=== PATIENT | female | born 1930 | race Caucasian/White ===

== ENCOUNTER 2016-07-30 16:37 | Observation (INO) | payer MEDICARE, OTHER ==
[2016-07-30] MEDS ORDERED: Ondansetron 4 MG Tab.DIS PO PRN (17:24)
[2016-07-30] MEDS ORDERED: Sodium Chloride 0.9% 5 ML Syringe FLUSH PRN (17:24)
[2016-07-30] MEDS: Acetaminophen 650 MG Tab.ER PO SCH (18:03)
[2016-07-30] MEDS: Lidocaine 5% 700 MG Patch TOP SCH (18:03)
[2016-07-30] MEDS ORDERED: Polyethylene Glycol 3350 Powder 17 GM Packet PO PRN (19:33)
[2016-07-30] MEDS ORDERED: Ketorolac 30 MG/ML SDV IVPUSH ONE (19:35)
[2016-07-30] MEDS ORDERED: Gabapentin 300 MG Cap PO SCH (21:00)
[2016-07-30] MEDS ORDERED: Fenofibrate 160 MG Tab PO SCH (21:00)
[2016-07-30] MEDS ORDERED: rOPINIRole 0.25 MG Tab PO SCH (21:00)
[2016-07-30] MEDS: Carboxymethylcellulose Sodium 0.5% Ophth Soln 15 ML Bottle EYEBOTH SCH (21:45)
[2016-07-30] MEDS ORDERED: Ketorolac 30 MG/ML SDV ONE (23:24)
[2016-07-31] MEDS: Acetaminophen 650 MG Tab.ER PO SCH ×4 (05:14→22:07)
[2016-07-31] MEDS ORDERED: Omeprazole 20 MG Cap.CR PO SCH (07:00)
[2016-07-31] MEDS ORDERED: Levothyroxine 25 MCG Tab PO SCH (07:00)
[2016-07-31] MEDS ORDERED: Levothyroxine 100 MCG Tab PO SCH (07:00)
[2016-07-31] MEDS ORDERED: Potassium Chloride 10 MEQ Tab.ER PO SCH (08:00)
[2016-07-31] MEDS ORDERED: Escitalopram 10 MG Tab PO SCH (09:00)
[2016-07-31] MEDS ORDERED: Isosorbide Mononitrate 30 MG Tab.ER PO SCH (09:00)
[2016-07-31] MEDS ORDERED: Gabapentin 300 MG Cap PO SCH ×2 (09:00→21:00)
[2016-07-31] MEDS ORDERED: Furosemide 20 MG Tab PO SCH (09:00)
[2016-07-31] MEDS: Gabapentin 300 MG Cap PO SCH ×2 (10:02→13:49)
[2016-07-31] MEDS: POTASSIUM CL 10 MEQ PO SCH (10:03)
[2016-07-31] MEDS: Escitalopram 10 MG Tab PO SCH (10:04)
[2016-07-31] MEDS: Furosemide 20 MG Tab PO SCH (10:06)
[2016-07-31] MEDS: Carboxymethylcellulose Sodium 0.5% Ophth Soln 15 ML Bottle EYEBOTH SCH ×3 (10:06→20:12)
[2016-07-31] MEDS: Isosorbide Mononitrate 30 MG Tab.ER PO SCH (10:07)
--- NOTE | 2016-07-31 11:46 | PN ---
07/31/2016 PATIENT NAME: KENNEDY MARTINS CHIEF COMPLAINT: She still has ongoing back pain, however, about 50% improved. HISTORY: This 86-year-old obese female, who saw myself at the [facility] yesterday, she was accompanied by her daughter complaining of ongoing quite severe back pain. She stated that it has been getting worse over the past few days. Her back pain was causing her so much pain that it was difficult in getting out of bed, and out of her chair. She was able to walk into the clinic yesterday, by the use of a walker, however, this was quite severe for, her main problem is getting from a sitting position to a standing position, or from a lying to a sitting or standing position. She was seen in the clinic a few days prior due to her shoulder pain. She did receive epidural steroid injection in her shoulder. She was also seen for her back pain mainly due to her osteoarthritis affecting the low back. She was scheduled at that time for physical therapy for some deep heat and ultrasound treatment of her back, however, there was a back log about the patient's in PT, so she could not get in right away. She has a longstanding history of chronic back pain with discogenic degenerative disk disease. She had received epidural steroid injection in her back by Dr. Banks in [place], [place], he is an orthopedic surgeon, but that was many years ago. The patient does have a few steps to get into her house, however, no steps while she is in the house. She stated yesterday that she has a hard time doing dishes, it was very painful for her by standing at the sink, she has to hold onto her counters in order to help support her. She has a very difficult time doing laundry and she had a very difficult time managing her basic ADLs at home. The family did modify her house to the point where she did not have to bend or lift so much, so, she was admitted basically for intractable back pain and for CT scan. DIAGNOSTICS: CT of the thoracic spine yesterday, shows mild compression fractures of T2, T6, and T11, questionable of uncertain age. There were no gross evidence of disk herniation or significant central stenosis. She did have a small pericardial effusion that was noted incidentally. Also, showed multilevel degenerative changes with significant bilateral foraminal stenosis at L5-S1. She is not a candidate for MRI due to pacemaker placement. REVIEW OF SYSTEMS: NEUROLOGICAL: Denies any radiation down the back of her legs, however, she does have radiculopathy down to her anterior thighs that extend past her knees. Her knees have not given out. GASTROINTESTINAL: She denies any bladder or bowel dysfunction. Denies saddle anesthesia. PHYSICAL EXAMINATION: VITAL SIGNS: Temperature 97, blood pressure 124/62, respiratory rate 20, and O2 sats 95% on room air. GENERAL: The patient is alert and oriented. LUNGS: Clear to auscultation. CARDIOVASCULAR: Regular rate and rhythm with approximately 1/2/6 of cardiac murmur, systolic. ABDOMEN: The patient is quite morbid. Bowel tones are normal. EXTREMITIES: She has negative dorsiflexion weakness. She has some mild radiculopathy symptoms radiating down to the anterior thighs, radiation does not extend past her knees . Normal patellar reflex. BACK: She has some paraspinal tenderness, mainly midline, axial, lower lumbar area. LABORATORY DATA: [facility], ESR and CBC were normal. Labs today dated 07/30/2016, sodium and potassium were normal. BUN 29, creatinine 0.92, and calcium 9.1. IMPRESSION/PLAN: 1. Multilevel degenerative changes with significant bilateral foraminal stenosis at L5-S1. The patient is schedule for an epidural steroid injection at the [facility] later in July. We will continue with Lidoderm patch. She received a dose of Toradol last night. Schedule Tylenol. She is on fentanyl patch 25 mcg prior to admission. 2. Pain management contract agreement with [facility]. 3. Essential hypertension. This is stable. 4. Coronary artery disease with [place] artery of menominee heart with stable angina. She is on Imdur. 5. Sick sinus syndrome. She does have a pacemaker prohibiting MRI. 6. Chronic combined systolic and diastolic heart failure. 7. Morbid obesity. She is on 1600 kilocalorie diet, this has been reduced, this is definitely contributing to her acute on chronic pain. 8. Vitamin B12 deficiency. 9. Depressive disorder. This seems to be well controlled on citalopram. 10.Idiopathic sleep-related nonobstructive hypoventilation, she is on a CPAP, she had brought this in. 11.Restless legs syndrome. 12.Chronic kidney disease history. Her GFR is good at 58. Creatinine clearance is around 30, stage III. 13.Primary osteoarthritis involving multiple joints. OVERALL PLAN: The patient is scheduled for an epidural steroid injection. She is in observation status. We will continue monitoring her today for her pain control. We will see how she does with this today with Lidoderm patch, Toradol, and schedule Tylenol. Most likely, she will be discharged tomorrow and hopefully, we can her keep her level of function adequate until her epidural steroid injection. She does have a physical therapy consultation placed at [facility]. /[id number]/MODL
[2016-07-31] MEDS: Lidocaine 5% 700 MG Patch TOP SCH (18:00)
[2016-07-31] MEDS ORDERED: Fenofibrate 160 MG Tab PO SCH (21:00)
[2016-07-31] MEDS ORDERED: rOPINIRole 0.25 MG Tab PO SCH (21:00)
[2016-08-01] MEDS: Acetaminophen 650 MG Tab.ER PO SCH ×2 (06:27→13:23)
[2016-08-01] MEDS ORDERED: Omeprazole 20 MG Cap.CR PO SCH (07:00)
[2016-08-01] MEDS: Carboxymethylcellulose Sodium 0.5% Ophth Soln 15 ML Bottle EYEBOTH SCH ×2 (08:29→13:25)
[2016-08-01] MEDS: POTASSIUM CL 10 MEQ PO SCH (08:30)
[2016-08-01] MEDS: Escitalopram 10 MG Tab PO SCH (08:31)
[2016-08-01] MEDS: Isosorbide Mononitrate 30 MG Tab.ER PO SCH (08:31)
[2016-08-01] MEDS: Furosemide 20 MG Tab PO SCH (08:31)
[2016-08-01] MEDS: Gabapentin 300 MG Cap PO SCH ×2 (08:31→13:26)
[2016-08-01] MEDS ORDERED: Ketorolac 30 MG/ML SDV IVPUSH ONE (12:58)
--- NOTE | 2016-08-01 13:19 | DISCH ---
FINAL DIAGNOSES: Multilevel degenerative disk disease, L5-S1; essential hypertension, which is stable; coronary artery disease with [place] artery, stable, she is on Imdur; sick sinus syndrome, on pacemaker prohibiting MRI; chronic combined diastolic and systolic heart failure; morbid obesity, placed on 1600 kilocalorie diet; vitamin B12 deficiency; depressive disorder, seems well controlled on citalopram; idiopathic sleep-related nonobstructive hypoventilation, she is on home CPAP; restless legs syndrome; chronic kidney disease, GFR around 58, creatinine clearance around 30, this is stage 3; primary osteoarthritis involving multiple joints. Compression fractures of T2, T6 and T11 with questionable certain age, however with no evidence of disk herniation and no significant central stenosis. HISTORY: This 86-year-old, obese female whom I saw myself at the [facility] and admitted her into observation due to intractable back pain. She was brought in by her daughter. Quite severe back pain. It tends to be gotten worse over the past few days prior to her coming in causing her so much pain that it was difficult getting out of bed, performing her basic ADLs. She was recently increased on her fentanyl patch from 12 mcg to 25 mcg. This was done approximately three weeks ago. However, she stated it has not improved. She did receive an epidural steroid injection in her shoulder just recently. She had also been seen for her back pain. Many years ago, was given the epidural steroid injection by Dr. Banks in [facility]. This is per patient report. We did perform a CT of her thoracic spine, which showed mild compression fractures T2, T6, and T11. HOSPITAL COURSE: The patient's hospital course went well. She improved much regarding her pain control. We gave her a very limited doses of Toradol, probably two doses since admission. She was continued on the fentanyl patch. I did place her on Tylenol Arthritis scheduled with a Lidoderm patch. She states her pain is much improved. She will receive an epidural steroid injection at the [facility]. Her vital signs remained stable. She never had any side effects or allergic reactions to any medications or treatments. I did place her on a 1600 kilocalorie diet per day for weight loss. She became afebrile. Her vital signs were stable. LABORATORY DATA: Sodium 141, potassium 4.1, BUN 29, creatinine 0.98, estimated GFR around 58, calcium 9.1. There was no microbiology report. MEDICATION CHANGES AND/OR DELETIONS: Diclofenac sodium 75 mg p.o. b.i.d. #60 given (newly added), Tylenol Arthritis 650 mg p.o. q.8 hours scheduled (newly added). The patient can continue on all her home medications including a fentanyl patch. DISPOSITION: The patient was discharged from observation. She will go back home. She has good family support. We assessed her with Leasing Director. It appears she has regained her full ability to perform her ADLs. She will receive an epidural steroid injection shot at the [facility] outpatient [facility] by Dr. Lisandro Garcia. This appointment will be made for her. She is to continue with her medications. MEDICAL DECISION MAKIN minutes were spent on discharge planning and process. /[id number]/MODL
[2016-08-01 14:26] VITALS: BP 125/55
[2016-08-02] MEDS ORDERED: fentaNYL 25 MCG/HR Transdermal Patch TRDERM SCH (09:00)
[2016-08-02] MEDS ORDERED: fentaNYL 12 MCG/HR Transdermal Patch TRDERM SCH (09:00)
== END 2016-08-01 14:07 | disposition home or self-care (01) ==
LOC: KA.MS 16:42
PROVIDERS: ADMIT Nurse Practitioner Family; ATTEND Nurse Practitioner Family
DX: M51.37 Other intervertebral disc degeneration, lumbosacral region (principal); I25.10 Atherosclerotic heart disease of native coronary artery without angina pectoris; I10 Essential (primary) hypertension; E66.01 Morbid (severe) obesity due to excess calories; I13.0 Hypertensive heart and chronic kidney disease with heart failure and stage 1 through stage 4 chronic kidney disease, or unspecified chronic kidney disease; N18.3 Chronic kidney disease, stage 3 (moderate); I50.42 Chronic combined systolic (congestive) and diastolic (congestive) heart failure; Z95.0 Presence of cardiac pacemaker; Z79.899 Other long term (current) drug therapy; Z88.8 Allergy status to other drugs, medicaments and biological substances; E03.9 Hypothyroidism, unspecified; E78.2 Mixed hyperlipidemia; E53.8 Deficiency of other specified B group vitamins; Z90.49 Acquired absence of other specified parts of digestive tract; Z96.653 Presence of artificial knee joint, bilateral
CPT/HCPCS: 36415; 72128; 72131; 80048; 96374; 96376; 97162-GP; A9270-GY; G0378; G0379; J1885

== ENCOUNTER 2017-05-06 14:54 | Observation (INO) | payer MEDICARE, OTHER ==
--- NOTE | 2017-05-06 15:39 | EDM.PDOC ---
ED HPI GENERAL MEDICAL PROBLEM - General Chief Complaint: Respiratory Problem Stated Complaint: SHORT OF BREATH Time Seen by Provider: 05/06/17 15:20 Source of Information: Reports: Patient History Limitations: Reports: No Limitations - History of Present Illness INITIAL COMMENTS - FREE TEXT/NARRATIVE: Patient is an 87-year-old female who presents emergency department this afternoon with a complaint of shortness of breath. Patient states this has progressively gotten worse since her release from the hospital on May 02. Patient underwent percutaneous aortic valve replacement in [place], [place] on May 01. Procedure and hospital stay were said to be uneventful. Patient denies chest pain, headache, dizziness, vision changes, nausea, vomiting , diarrhea, or fever. Onset: Gradual Duration: Day(s): Location: Reports: Chest Severity: Mild Improves with: Reports: None Worsens with: Reports: Breathing Context: Reports: Activity Associated Symptoms: Reports: Shortness of Breath. Denies: Chest Pain, Cough, Fever/Chills, Headaches, Nausea/Vomiting, Syncope Middle Abdominal Pain Score (Numeric/FACES): 3 - Related Data Allergies Allergy/AdvReac Type Severity Reaction Status Date / Time baclofen Allergy Confusion Verified 05/06/17 15:46 hydrocodone Allergy Hives Verified 05/06/17 15:46 polymyxin B [From Polytrim] Allergy Itching Verified 05/06/17 15:46 tramadol Allergy Hives Verified 05/06/17 15:46 trimethoprim [From Polytrim] Allergy Itching Verified 05/06/17 15:46 Home Meds: Home Meds Aspirin [Halfprin] 81 mg PO BEDTIME 05/13/16 [History] Cyanocobalamin (Vitamin B-12) [Cyanocobalamin Injection] 1,000 mcg IM ASDIRECTED 05/13/16 [History] Escitalopram [Lexapro] 15 mg PO DAILY 05/13/16 [History] Fenofibrate [Lofibra] 160 mg PO BEDTIME 05/13/16 [History] Gabapentin [Neurontin] 300 mg PO 0900,1400 05/13/16 [History] Isosorbide Mononitrate [Isosorbide Mononitrate ER] 45 mg PO DAILY 05/13/16 [ History] Levothyroxine 125 mcg PO ACBREAKFAST 05/13/16 [History] Magnesium Oxide [Magnesium] 500 mg PO DAILY 05/13/16 [History] Multivitamin [Multivitamins] 1 each PO DAILY 05/13/16 [History] Nitroglycerin [IJP: Nitroglycerin] 0.4 mg SL ASDIRECTED PRN 05/13/16 [History] Omeprazole 20 mg PO ACBREAKFAST 05/13/16 [History] Potassium Chloride [Klor-Con 10] 20 meq PO WITHBREAKFAST 05/13/16 [History] Propylene Glycol/Peg 400 [Systane 0.3-0.4% Eye Drops] 1 drop EYEBOTH TID [History] Simvastatin 10 mg PO BEDTIME 05/13/16 [History] Trola/Keto/Menth 1 applic TOP TID PRN 05/13/16 [History] Vitamin E Acid Succinate [Vitamin E] 100 unit PO DAILY 05/13/16 [History] Xx Calcium Lactate 325mg 3 tab PO BIDMEALS 05/13/16 [History] rOPINIRole HCl [Ropinirole HCl] 0.25 mg PO BEDTIME 05/13/16 [History] Ascorbic Acid [Vitamin C] 1 tab PO DAILY 07/30/16 [History] Polyethylene Glycol 3350 [MiraLAX] 17 gm PO DAILY PRN 07/30/16 [History] Furosemide 20 mg PO DAILY 07/31/16 [History] Gabapentin [Neurontin] 300 mg PO BEDTIME 07/31/16 [History] Gluc 2KCl/Chondr/Amanda Hy/Hy Ac [Glucosamine & Chondroitin Cap] 1 cap PO DAILY@ 1400 07/31/16 [History] Gluc 2KCl/Chondr/Amanda Hy/Hy Ac [Glucosamine & Chondroitin Cap] 2 cap PO BEDTIME 07/31/16 [History] Acetaminophen [Tylenol Arthritis Pain] 650 mg PO 0600,1400,2200 #90 tab.er 08/01 [Rx] Diclofenac Sodium [IMW: Diclofenac Sodium] 75 mg PO .TWICE DAILY W MEALS #60 tab.ec 08/01/16 [Rx] fentaNYL [Duragesic] 25 mcg TRDERM Q72H 08/01/16 [History] Past Medical History HEENT History: Reports: Cataract, Impaired Vision Cardiovascular History: Reports: CAD, Hypertension, Pacemaker Gastrointestinal History: Reports: GERD Genitourinary History: Reports: Urinary Incontinence COMMUNITY NURSE History: Reports: Other (See Below) Other OB/BYN History: miscarriages x2 Musculoskeletal History: Reports: Back Pain, Chronic, Osteoarthritis, Osteoporosis Neurological History: Reports: None Psychiatric History: Reports: Depression Endocrine/Metabolic History: Reports: Hypothyroidism, Osteoporosis - Infectious Disease History Infectious Disease History: Reports: Measles, Mumps - Past Surgical History HEENT Surgical History: Reports: Cataract Surgery GI Surgical History: Reports: Other (See Below) Musculoskeletal Surgical History: Reports: Knee Replacement Social & Family History - Family History Family Medical History: Noncontributory - Tobacco Use Smoking Status *Q: Never Smoker Second Hand Smoke Exposure: Yes - Caffeine Use Caffeine Use: Reports: None - Recreational Drug Use Recreational Drug Use: No ED ROS GENERAL - Review of Systems Review Of Systems: ROS reveals no pertinent complaints other than HPI. Constitutional: Reports: No Symptoms HEENT: Reports: No Symptoms Respiratory: Reports: Shortness of Breath Cardiovascular: Reports: No Symptoms. Denies: Chest Pain Endocrine: Reports: No Symptoms GI/Abdominal: Reports: No Symptoms : Reports: No Symptoms Musculoskeletal: Reports: No Symptoms Skin: Reports: No Symptoms Neurological: Reports: No Symptoms Psychiatric: Reports: No Symptoms Hematologic/Lymphatic: Reports: No Symptoms Immunologic: Reports: No Symptoms ED EXAM, GENERAL - Physical Exam Exam: See Below Exam Limited By: No Limitations General Appearance: Alert, WD/WN, No Apparent Distress Eye Exam: Bilateral Eye: Normal Inspection Nose: Normal Inspection, Normal Mucosa, No Blood Throat/Mouth: Normal Inspection, Normal Oropharynx, No Airway Compromise Head: Atraumatic, Normocephalic Neck: Normal Inspection, Supple. No: Carotid Bruit Respiratory/Chest: No Respiratory Distress, No Accessory Muscle Use, Chest Non- Tender, Decreased Breath Sounds (bibasilar). No: Rales, Rhonchi, Wheezing Cardiovascular: Regular Rate, Rhythm, No Murmur GI/Abdominal: Normal Bowel Sounds, Soft, Non-Tender Back Exam: Normal Inspection. No: CVA Tenderness (L), CVA Tenderness (R) Extremities: Normal Inspection, No Pedal Edema Neurological: Alert, Oriented, Normal Cognition Psychiatric: Normal Affect, Normal Mood Skin Exam: Warm, Dry, Intact, Normal Color, No Rash EKG INTERPRETATION EKG Date: 05/06/17 Time: 15:40 Rate (Beats/Min): 60 [place]: LAD-Left [place] Deviation QRS: LBBB Comparison: NA - No Prior EKG EKG Interpretation Comments: pacemaker Course - Vital Signs Last Recorded V/S: Last Vital Signs Temp 97.6 F 05/06/17 15:38 Pulse 66 05/06/17 16:54 Resp 16 05/06/17 16:54 BP 134/37 L 05/06/17 16:54 Pulse Ox 94 L 05/06/17 16:54 - Orders/Labs/Meds Orders: Active Orders 24 hr Category Date Time Status Cardiac Monitoring [RC] . DIRECTED Care 05/06/17 15:21 Active EKG Documentation Completion [RC] ASDIRECTED Care 05/06/17 15:22 Active Chest 2V [CR] Stat Exams 05/06/17 15:21 Taken UA W/MICROSCOPIC [URIN] Stat Lab 05/06/17 15:21 Uncollected EKG 12 Lead [EK] Stat Ther 05/06/17 15:21 Ordered Labs: Laboratory Tests 05/06/17 05/06/17 05/06/17 Range/Units 15:40 15:40 15:40 WBC 6.2 (5.0-10.0) 10^3/uL RBC 3.89 (3.80-5.50) 10^6/uL Hgb 11.5 L (12.0-16.0) g/dL Hct 34.2 L (37.0-47.0) % MCV 88.1 (82.0-92.0) fL MCH 29.6 (27.0-31.0) pg MCHC 33.6 (32.0-36.0) g/dL RDW 14.1 (11.5-14.5) % Plt Count 275 (150-300) 10^3/uL MPV 7.8 (7.4-10.4) fL Neut % (Auto) 65.4 (50.0-70.0) % Lymph % (Auto) 17.1 L (20.0-40.0) % [place] % (Auto) 14.0 H (2.0-8.0) % Eos % (Auto) 3.0 (1.0-3.0) % Baso % (Auto) 0.5 (0.0-1.0) % Neut # (Auto) 4.0 (2.5-7.0) 10^3/uL Lymph # (Auto) 1.1 (1.0-4.0) 10^3/uL [place] # (Auto) 0.9 H (0.1-0.8) 10^3/uL Eos # (Auto) 0.2 (0.1-0.3) 10^3/uL Baso # (Auto) 0.0 (0.0-0.1) 10^3/uL PT 10.3 (8.9-11.4) SEC INR 1.0 (0.9-1.1) APTT 24.5 (20.8-31.2) SEC Sodium 139 (136-145) mmol/L Potassium 4.2 (3.3-5.3) mmol/L Chloride 102 (98-115) mmol/L Carbon Dioxide 30.0 (21.0-32.0) mmol/L BUN 25 (6-25) mg/dL Creatinine 1.06 (0.51-1.17) mg/dL Est Cr Clr Drug Dosing 28.46 mL/min Estimated GFR (MDRD) 49 mL/min Glucose 173 H (70-110) mg/dL Calcium 8.9 (8.7-10.3) mg/dL Total Bilirubin 0.4 (0.2-1.0) mg/dL AST 16 (15-37) U/L ALT 15 (12-78) U/L Alkaline Phosphatase 55 (46-116) IU/L Troponin I 0.11 H* (0.00-0.070) ng/mL B-Natriuretic Peptide 87 (0-100) pg/mL Total Protein 6.5 (6.4-8.2) g/dL Albumin 2.96 L (3.00-4.80) g/dL Meds: Medications Discontinued Medications Generic Name Dose Route Start Last Admin Trade Name Freq PRN Reason Stop Dose Admin Furosemide 40 mg 05/06/17 17:42 Lasix IVPUSH 05/06/17 17:43 NOW ONE - Radiology Interpretation Free Text/Narrative:: CHEST X-RAY SHOWS NO ACUTE PROCESS. - Re-Assessments/Exams Free Text/Narrative Re-Assessment/Exam: 05/06/17 16:57 Case is discussed with Dr. Mccallum, cardiology from [facility], and he recommended to contact [facility] for further direction. 05/06/17 17:[address] Cobb, cardiology from [place], [place]. Recommendation was to repeat cardiac enzymes and if there is an elevation to then transferred patient. Discussed case with Moreno Ward provider from [place] and patient will be admitted to observation status and he will follow. Departure - Departure Time of Disposition: 17:52 Disposition: Refer to Observation Condition: Fair Clinical Impression: Shortness of breath, Elevated troponin - Discharge Information Referrals: Jina Garcia MD [Primary Care Provider] - Forms: ED Department Discharge - My Orders Last 24 Hours: My Active Orders 05/06/17 15:21 Cardiac Monitoring [RC] . DIRECTED Chest 2V [CR] Stat UA W/MICROSCOPIC [URIN] Stat EKG 12 Lead [EK] Stat 05/06/17 15:22 EKG Documentation Completion [RC] ASDIRECTED - Assessment/Plan Last 24 Hours: My Active Orders 05/06/17 15:21 Cardiac Monitoring [RC] . DIRECTED Chest 2V [CR] Stat UA W/MICROSCOPIC [URIN] Stat EKG 12 Lead [EK] Stat 05/06/17 15:22 EKG Documentation Completion [RC] ASDIRECTED Assessment:: Shortness of breath, elevated troponin Plan: Admit to observation status
[2017-05-06] MEDS ORDERED: Furosemide 40 MG/4 ML VIAL IVPUSH ONE (17:42)
[2017-05-06] MEDS ORDERED: Acetaminophen 650 MG Tab.ER PO PRN (20:23)
[2017-05-06] MEDS ORDERED: Nitroglycerin 0.4 MG Tab.SL SL PRN (20:23)
[2017-05-06] MEDS ORDERED: Magnesium Hydroxide 400 MG/5 ML Susp 30 ML Cup PO PRN (20:23)
[2017-05-06] MEDS: Ticagrelor 90 MG Tab PO SCH (21:35)
[2017-05-06] MEDS: Simvastatin 10 MG Tab PO SCH (21:35)
[2017-05-06] MEDS: Aspirin 81 MG Tab.EC PO SCH (21:35)
[2017-05-06] MEDS: Docusate Sodium 100 MG Cap PO SCH (21:36)
[2017-05-06] MEDS: Mirtazapine 15 MG Tab PO SCH (21:36)
[2017-05-06] MEDS: Gabapentin 300 MG Cap PO SCH (21:36)
[2017-05-07] MEDS ORDERED: fentaNYL 12 MCG/HR Transdermal Patch TRDERM SCH (08:00)
[2017-05-07] MEDS ORDERED: fentaNYL 25 MCG/HR Transdermal Patch TRDERM SCH (08:00)
[2017-05-07] MEDS ORDERED: CALCIUM LACTATE PO SCH (08:00)
--- NOTE | 2017-05-07 08:35 | PCM.HP ---
H&P History of Present Illness - General Date of Service: 05/07/17 Admit Problem/Dx: Admission Diagnosis/Problem Admission Diagnosis/Problem Shortness of breath Source of Information: Patient, Provider, RN - History of Present Illness Initial Comments - Free Text/Narative: Patient is an 87-year-old female resident of a local long-term care center came in last night through the ED complaining of some progressive shortness of breath. Patient is status post percutaneous AVR Miki Escoto [facility] DOS May 01. Admitting labs noted slightly elevated troponin of 0.11 she was admitted for overnight observation. Patient states her SOB is slightly worse than when she was discharged from hospital. Procedure and hospital stay were said to be uneventful. Upon admission she denied any chest pain, headache, dizziness, vision changes, nausea, vomiting, diarrhea, or fever however shortly after admission she stated she had left upper quadrant abdominal pain that she contributes to gas resting approximately 1 hour and resolved spontaneously. ED provider last night consulted with Dr. Cobb's patient's vocational counselor Miki Escoto and recommended overnight observation at [facility] with possible transfer his troponins are trending upward. Diuretics were given last night however the patient did not respond really and her weight is stable since discharged Miki Escoto. Pacemaker (01/24/2017) d/t; Sick sinus syndrome; Middle Abdominal Pain Score (Numeric/FACES): 3 - Related Data Allergies/Adverse Reactions: Allergies Allergy/AdvReac Type Severity Reaction Status Date / Time baclofen Allergy Confusion Verified 05/06/17 15:46 hydrocodone Allergy Hives Verified 05/06/17 15:46 polymyxin B [From Polytrim] Allergy Itching Verified 05/06/17 15:46 tramadol Allergy Hives Verified 05/06/17 15:46 trimethoprim [From Polytrim] Allergy Itching Verified 05/06/17 15:46 Home Medications: Home Meds Aspirin [Halfprin] 81 mg PO BEDTIME 05/13/16 [History] Cyanocobalamin (Vitamin B-12) [Cyanocobalamin Injection] 1,000 mcg IM ASDIRECTED 05/13/16 [History] Fenofibrate [Lofibra] 160 mg PO BEDTIME 05/13/16 [History] Gabapentin [Neurontin] 300 mg PO TID 05/13/16 [History] Isosorbide Mononitrate [Isosorbide Mononitrate ER] 45 mg PO DAILY 05/13/16 [ History] Magnesium Oxide [Magnesium] 500 mg PO DAILY 05/13/16 [History] Nitroglycerin [IJP: Nitroglycerin] 0.4 mg SL ASDIRECTED PRN 05/13/16 [History] Potassium Chloride [Klor-Con 10] 20 meq PO WITHBREAKFAST 05/13/16 [History] Propylene Glycol/Peg 400 [Systane 0.3-0.4% Eye Drops] 1 drop EYEBOTH BID [History] Simvastatin 10 mg PO BEDTIME 05/13/16 [History] Vitamin E Acid Succinate [Vitamin E] 100 unit PO DAILY 05/13/16 [History] Xx Calcium Lactate 325mg 250 mg PO BIDMEALS 05/13/16 [History] Furosemide 20 mg PO DAILY 07/31/16 [History] fentaNYL [Duragesic] 25 mcg TRDERM Q72H 08/01/16 [History] Acetaminophen [Tylenol Arthritis Pain] 650 mg PO TID PRN 05/06/17 [History] Ascorbic Acid 500 mg PO 05/06/17 [History] Docusate Sodium 100 mg PO BID 05/06/17 [History] Escitalopram [Lexapro] 20 mg PO DAILY 05/06/17 [History] Fluticasone Propionate [Flonase] 1 spray NASBOTH DAILY 05/06/17 [History] Furosemide [Lasix] 40 mg PO DAILY PRN 05/06/17 [History] Levothyroxine Sodium [Synthroid] 150 mcg PO DAILY 05/06/17 [History] Magnesium Hydroxide [Milk of Magnesia] 30 ml PO DAILY PRN 05/06/17 [History] Menthol/Camphor/Irr Cntr-Irtn1 [Enzo Natural Pain Relieve Gl] 1 applic TP BID 05/06/17 [History] Metoprolol Succinate 12.5 mg PO DAILY 05/06/17 [History] Mirtazapine 7.5 mg PO BEDTIME 05/06/17 [History] Pantoprazole Sodium [Protonix] 20 mg PO DAILY 05/06/17 [History] Ranolazine [Ranexa] 500 mg PO BID 05/06/17 [History] Sennosides/Docusate Sodium [Senna-S] 1 each PO DAILY 05/06/17 [History] Ticagrelor [Brilinta] 90 mg PO BID 05/06/17 [History] Vit C/E/Zn/Coppr/Lutein/Zeaxan [Preservision Areds 2 Softgel] 1 cap PO BID 05/06 [History] fentaNYL [Duragesic] 12 mcg TRDERM Q72H 05/06/17 [History] Past Medical History HEENT History: Reports: Cataract, Impaired Vision Cardiovascular History: Reports: CAD, Hypertension, Pacemaker Respiratory History: Reports: SOB Gastrointestinal History: Reports: GERD Genitourinary History: Reports: Urinary Incontinence TOP FORMER History: Reports: Other (See Below) Other OB/BYN History: miscarriages x2 Musculoskeletal History: Reports: Back Pain, Chronic, Osteoarthritis, Osteoporosis Other Musculoskeletal History: Chronic pain R arm and shoulder Neurological History: Reports: None Psychiatric History: Reports: Depression Endocrine/Metabolic History: Reports: Hypothyroidism, Osteoporosis - Infectious Disease History Infectious Disease History: Reports: Measles, Mumps - Past Surgical History HEENT Surgical History: Reports: Cataract Surgery Cardiovascular Surgical History: Reports: Carotid Stents, Valve Replacement Respiratory Surgical History: Reports: None Musculoskeletal Surgical History: Reports: Knee Replacement Social & Family History - Family History HEENT: Reports: None Cardiac: Reports: None, CAD, Other (See Below) (Heart disease in father and both brothers) Respiratory: Reports: None GI: Reports: None : Reports: None OBGYN: Reports: None Musculoskeletal: Reports: None Neurological: Reports: None Psychiatric: Reports: None Endocrine/Metabolic: Reports: None Hematologic: Reports: None Immunologic: Reports: None Dermatologic: Reports: None Oncologic: Reports: None - Tobacco Use Smoking Status *Q: Never Smoker Second Hand Smoke Exposure: Yes - Caffeine Use Caffeine Use: Reports: Tea - Recreational Drug Use Recreational Drug Use: No H&P Review of Systems - Review of Systems: Review Of Systems: See Below General: Reports: Weight Gain (Weight today was sustained upon discharge from [facility]). Denies: Fever, Chills HEENT: Reports: Sinus Congestion. Denies: Dysphasia, Ear Pain, Eye Pain, Hearing Changes, Rhinitis, Vertigo, Visual Changes Cardiovascular: Reports: Palpitations, Dyspnea on Exertion, Lightheadedness. Denies: Chest Pain, Orthopnea, PND Gastrointestinal: Reports: Constipation (Hx of constipation recently.). Denies : Diarrhea, Nausea, Vomiting Genitourinary: Reports: No Symptoms Musculoskeletal: Reports: No Symptoms Psychiatric: Reports: No Symptoms Neurological: Reports: No Symptoms Hematologic/Lymphatic: Reports: No Symptoms Immunologic: Reports: No Symptoms Exam - Exam Exam: See Below - Vital Signs Vital Signs: Last Vital Signs Temp 97.8 F 05/07/17 08:10 Pulse 60 05/07/17 08:10 Resp 24 H 05/07/17 08:10 BP 128/58 L 05/07/17 08:10 Pulse Ox 94 L 05/07/17 08:10 Weight: 232 lb 11.2 oz - Exam Quality Assessment: Supplemental Oxygen General: Alert, Oriented, 4 HEENT: Conjunctiva Clear, Hearing Intact. No: Mucosa Moist & [place] Neck: Supple, Trachea Midline, 2 Lungs: Clear to Auscultation, Normal Respiratory Effort Cardiovascular: Regular Rate, Regular Rhythm, Systolic Murmur GI/Abdominal Exam: Normal Bowel Sounds, Soft, Non-Tender, No Organomegaly, No Distention, No Abnormal Bruit, No Mass, Pelvis Stable (Female) Exam: Deferred Back Exam: No: CVA Tenderness (L), CVA Tenderness (R) Extremities: No Pedal Edema Neurological: Cranial Nerves Intact, Reflexes Equal Bilateral Neuro Extensive - Mental Status: Alert, Oriented x3, Normal Mood/Affect, Normal Cognition Neuro Extensive - Motor, Sensory, Reflexes: CN II-XII Intact Psychiatric: Alert, Normal Affect, Normal Mood - Patient Data Lab Results Last 24 hrs: Laboratory Results - last 24 hr 05/06/17 05/06/17 05/07/17 Range/Units 18:20 20:00 06:10 Troponin I 0.12 H* 0.13 H* (0.00-0.070) ng/mL Specimen Type Urinvoid Urine Color Yellow (YELLOW) Urine Appearance Clear (CLEAR) Urine pH 7.0 (5.0-9.0) Ur Specific [place] 1.010 (1.005-1.030) Urine Protein Negative (NEGATIVE) mg/dL Urine Glucose (UA) Negative (NEGATIVE) mg/dL Urine Ketones Negative (NEGATIVE) mg/dL Urine Occult Blood Negative (NEGATIVE) Urine Nitrite Negative (NEGATIVE) Urine Bilirubin Negative (NEGATIVE) Urine Urobilinogen 0.2 (0.2-1.0) E.U./dL Ur Leukocyte Esterase Negative (NEGATIVE) Urine RBC 0-5 /HPF Urine WBC 5-10 H /HPF Ur Epithelial Cells Few /LPF Urine Bacteria Few (NONE TO FEW) /HPF Result Diagrams: 05/06/17 15:40 05/06/17 15:40 EKG INTERPRETATION EKG Date: 05/07/17 Rhythm: NSR (paced) [place]: LAD-Left [place] Deviation QRS: LBBB (Not new bundle branch block) ST-T: Normal QT: Prolonged (Corrected QTC greater than 500) Comparison: No Change *Q Meaningful Use (ADM) - VTE *Q VTE Criteria *Q: - Stroke *Q Stroke Criteria *Q: - AMI *Q AMI Criteria *Q: Problem List Initiated/Reviewed/Updated: Yes Orders Last 24hrs: Active Orders 24 hr Category Date Time Status Patient Status [ADT] Stat ADT 05/06/17 17:53 Ordered Oxygen Therapy [RC] .PRN Care 05/06/17 17:53 Active VTE/DVT Education [RC] PER UNIT ROUTINE Care 05/06/17 17:53 Active Vital Signs [RC] 0300,0700,1100,1500,1900,2300 Care 05/06/17 17:53 Active Acetaminophen [Tylenol Arthritis Pain] Med 05/06/17 20:23 Active 650 mg PO TID PRN Aspirin [Halfprin] Med 05/06/17 21:00 Active 81 mg PO BEDTIME Docusate Sodium [Colace] Med 05/06/17 21:00 Active 100 mg PO BID Docusate Sodium/Sennosides [Senna Plus] Med 05/07/17 09:00 Active 1 tab PO DAILY Escitalopram [Lexapro] Med 05/07/17 09:00 Active 20 mg PO DAILY Fluticasone Propionate [Flonase] Med 05/07/17 09:00 Active 0 gm NASBOTH DAILY Furosemide [Lasix] Med 05/07/17 09:00 Active 20 mg PO DAILY Gabapentin [Neurontin] Med 05/06/17 21:00 Active 300 mg PO TID Isosorbide Mononitrate [Imdur] Med 05/07/17 09:00 Active 45 mg PO DAILY Levothyroxine Med 05/07/17 09:00 Active 150 mcg PO DAILY Magnesium Hydroxide [Milk of Magnesia] Med 05/06/17 20:23 Active 30 ml PO DAILY PRN Magnesium Oxide Med 05/07/17 09:00 Active 500 mg PO DAILY Menthol/Camphor/Irr Cntr-Irtn1 [Enzo Natural Pain Med 05/06/17 21:00 Pending Relieve Gl] 1 applic TP BID Metoprolol Succinate [Toprol XL] Med 05/07/17 09:00 Active 12.5 mg PO DAILY Mirtazapine [Remeron] Med 05/06/17 21:00 Active 7.5 mg PO BEDTIME Nitroglycerin [Nitrostat] Med 05/06/17 20:23 Active 0.4 mg SL ASDIRECTED PRN Omeprazole Med 05/07/17 07:00 Active 20 mg PO DAILY@0700 Potassium Chloride [Klor-Con 10] Med 05/07/17 08:00 Active 20 meq PO WITHBREAKFAST Propylene Glycol/Peg 400 [Systane 0.3-0.4% Eye Drops] Med 05/06/17 21:00 Pending 1 drop EYEBOTH BID Ranolazine [Ranexa] Med 05/06/17 21:00 Active 500 mg PO BID Simvastatin [Zocor] Med 05/06/17 21:00 Active 10 mg PO BEDTIME Ticagrelor [Brilinta] Med 05/06/17 21:00 Active 90 mg PO BID Xx Calcium Lactate 325mg Med 05/07/17 08:00 Pending 250 mg PO BIDMEALS fentaNYL [Duragesic] Med 05/07/17 08:00 Active 12 mcg TRDERM Q72H fentaNYL [Duragesic] Med 05/07/17 08:00 Active 25 mcg TRDERM Q72H Resuscitation Status Routine Resus Stat 05/06/17 17:53 Ordered EKG 12 Lead [EK] Routine Ther 05/07/17 08:07 Ordered Medication Orders Acetaminophen (Tylenol Arthritis Pain) 650 mg PO TID PRN PRN Reason: Pain Aspirin (Halfprin) 81 mg PO BEDTIME [facility] Last Admin: 05/06/17 21:35 Dose: 81 mg Docusate Sodium (Colace) 100 mg PO BID [facility] Last Admin: 05/06/17 21:36 Dose: 100 mg Escitalopram Oxalate (Lexapro) 20 mg PO DAILY ALFONSO Fentanyl (Duragesic) 12 mcg TRDERM Q72H ALFONSO Fentanyl (Duragesic) 25 mcg TRDERM Q72H ALFONSO Fluticasone Propionate (Flonase) 0 gm NASBOTH DAILY [facility] Furosemide (Lasix) 20 mg PO DAILY [facility] Gabapentin (Neurontin) 300 mg PO TID [facility] Last Admin: 05/06/17 21:36 Dose: 300 mg Isosorbide Mononitrate (Imdur) 45 mg PO DAILY [facility] Levothyroxine Sodium (Levothyroxine) 150 mcg PO DAILY [facility] Magnesium Hydroxide (Milk Of Magnesia) 30 ml PO DAILY PRN PRN Reason: Constipation Magnesium Oxide (Magnesium Oxide) 500 mg PO DAILY [facility] Metoprolol Succinate (Toprol Xl) 12.5 mg PO DAILY [facility] Mirtazapine (Remeron) 7.5 mg PO BEDTIME [facility] Last Admin: 05/06/17 21:36 Dose: 7.5 mg Nitroglycerin (Nitrostat) 0.4 mg SL ASDIRECTED PRN PRN Reason: Chest Pain Non-Formulary Medication (Menthol/Camphor/Irr Cntr-Irtn1 [Enzo Natural Pain Relieve Gl]) 1 applic TP BID [facility] Non-Formulary Medication (Propylene Glycol/Peg 400 [Systane 0.3-0.4% Eye Drops] ) 1 drop EYEBOTH BID [facility] Non-Formulary Medication (Xx Calcium Lactate 325mg) 250 mg PO BIDMEALS [facility] Omeprazole (Omeprazole) 20 mg PO DAILY@0700 [facility] Potassium Chloride (Klor-Con 10) 20 meq PO WITHBREAKFAST [facility] Ranolazine (Ranexa) 500 mg PO BID [facility] Last Admin: 05/06/17 21:38 Dose: Senna/Docusate Sodium (Senna Plus) 1 tab PO DAILY [facility] Simvastatin (Zocor) 10 mg PO BEDTIME [facility] Last Admin: 05/06/17 21:35 Dose: 10 mg Ticagrelor (Brilinta) 90 mg PO BID [facility] Last Admin: 05/06/17 21:35 Dose: 90 mg Assessment/Plan Comment:: HISTORY OF PRESENT ILLNESS Patient is an 87-year-old female resident of a local long-term care center came in last night through the ED complaining of some progressive shortness of breath. Patient is status post [facility]. Admitting labs noted slightly elevated troponin of 0.11 she was admitted for overnight observation. Patient states her SOB is slightly worse than when she was discharged from hospital. Procedure and hospital stay were said to be uneventful. Upon admission she denied any chest pain, headache, dizziness, vision changes, nausea, vomiting, diarrhea, or fever however shortly after admission she stated she had left upper quadrant abdominal pain that she contributes to gas resting approximately 1 hour and resolved spontaneously. ED provider last night consulted with Dr. Cobb's patient's vocational counselor Miki Escoto and recommended overnight observation at [facility] with possible transfer his troponins are trending upward. Diuretics were given last night however the patient did not respond really and her weight is stable since discharged Miki Escoto. Pacemaker (01/24/2017) d/t; Sick sinus syndrome; Recent hospital course Miki Escoto [facility] Patient was admitted on 05/01/2017 for TAVR due to severe aortic stenosis. She underwent placement of aortic valve via right perc. Her postop course was uneventful. ECHO completed the morning of discharge illustrated good prosthetic aortic valve (TAVR) function, and NL EF. (EF hyperdynamic 80%) (EF55-60% prior TAVR). She had recent PCI of distal circ in 04/2017 and mid LAD PCI in 03/2017. She had a PPM placed in 2012. She was discharged on brilinta and aspirin long with metoprolol, decrease Lasix to 20 mg daily. She was to follow-up with her PCP in 1 week and the valve clinic in one month with a repeat ECHO at that time. Upon discharge she had negative chest pain, SOB, or dizziness and she was ambulating without any symptoms. Pertinent diagnostics/labs Troponin, flat line 0.11-0.13 EKG LBBB, paced rhythm, no changes from previous (LBBB not new) However QTc>500 Chest x-ray, no acute process Baseline weight, no change BNP, 87 Primary impression Myocardial infarction, non-STEMI, likely type II, ischemic driven protocol with maximal medical management, increase metoprolol to 25 mg by mouth daily. Aspirin , Brilinta, telemetry today. CAD s/p PCI. No ischemic picture, continue with Imdur, Ranexa SSS, status post pacemaker OIC constipation; entertain Movantik, important preventing straining on closed glottis, discussed with pharmacy regarding costs Other chronic medical problems Diverticulitis, stable Hypothyroidism, stable Obesity; morbid and contributory Osteoarthritis; on COT, recommend PCP titrate down. Other B-complex deficiencies; Unspecified sleep apnea. On Cpap CODE STATUS, full code Overall plan and discharge disposition, will monitor on telemetry today, discussion with patient's vocational counselor Dr. [facility]'s [facility]. He agrees with plan. Patient desires treatment here locally, will increase metoprolol. Forego any cardiac trending troponin since flat line. Continue with observation likely discharge tomorrow, recommend PCP follow-up and with patient's vocational counselor in [place] next week. Will have patient ambulate in room today, monitor oxygenation status. Keep SaO2 no greater than 95%. Monitor for any hemodynamic instability.
[2017-05-07] MEDS ORDERED: Metoprolol Succinate 25 MG Tab.ER PO SCH (09:00)
[2017-05-07] MEDS: Potassium Chloride 10 MEQ Tab.ER PO SCH (09:57)
[2017-05-07] MEDS: Levothyroxine 75 MCG Tab PO SCH (09:57)
[2017-05-07] MEDS: Escitalopram 10 MG Tab PO SCH (09:57)
[2017-05-07] MEDS: Fluticasone Propionate Nasal Spray 16 GM Bottle NASBOTH SCH (09:57)
[2017-05-07] MEDS: Gabapentin 300 MG Cap PO SCH ×3 (09:57→20:36)
[2017-05-07] MEDS: Ticagrelor 90 MG Tab PO SCH ×2 (09:57→20:36)
[2017-05-07] MEDS: Magnesium Oxide 500 MG Tab PO SCH (09:57)
[2017-05-07] MEDS: Docusate Sodium 100 MG Cap PO SCH ×2 (09:57→20:36)
[2017-05-07] MEDS: Furosemide 20 MG Tab PO SCH (09:57)
[2017-05-07] MEDS: Isosorbide Mononitrate 30 MG Tab.ER PO SCH (09:58)
[2017-05-07] MEDS: Omeprazole 20 MG Cap.CR PO SCH (10:03)
[2017-05-07] MEDS: Metoprolol Succinate 25 MG Tab.ER PO SCH (10:12)
[2017-05-07] MEDS: [UNRECOGNIZED DRUG - OTHER] TOP SCH ×3 (10:56→20:39)
[2017-05-07] MEDS: Carboxymethylcellulose Sodium 0.5% Ophth Soln 15 ML Bottle EYEBOTH SCH ×2 (12:18→20:39)
[2017-05-07] MEDS: RANEXA 500 MG PO SCH ×2 (14:04→20:36)
[2017-05-07] MEDS: CALCIUM LACTATE PO SCH (17:55)
[2017-05-07] MEDS: Simvastatin 10 MG Tab PO SCH (20:36)
[2017-05-07] MEDS: Mirtazapine 15 MG Tab PO SCH (20:36)
[2017-05-07] MEDS: Aspirin 81 MG Tab.EC PO SCH (20:36)
[2017-05-08] MEDS: Omeprazole 20 MG Cap.CR PO SCH (06:41)
[2017-05-08] MEDS: CALCIUM LACTATE PO SCH (08:21)
[2017-05-08] MEDS: Potassium Chloride 10 MEQ Tab.ER PO SCH (08:21)
[2017-05-08] MEDS: Levothyroxine 75 MCG Tab PO SCH (08:22)
[2017-05-08] MEDS: RANEXA 500 MG PO SCH (08:22)
[2017-05-08] MEDS: Magnesium Oxide 500 MG Tab PO SCH (08:23)
[2017-05-08] MEDS: Docusate Sodium 100 MG Cap PO SCH (08:23)
[2017-05-08] MEDS: Furosemide 20 MG Tab PO SCH (08:23)
[2017-05-08] MEDS: Escitalopram 10 MG Tab PO SCH (08:23)
[2017-05-08] MEDS: Ticagrelor 90 MG Tab PO SCH (08:23)
[2017-05-08] MEDS: Isosorbide Mononitrate 30 MG Tab.ER PO SCH (08:24)
[2017-05-08] MEDS: Metoprolol Succinate 25 MG Tab.ER PO SCH (08:24)
[2017-05-08] MEDS: Fluticasone Propionate Nasal Spray 16 GM Bottle NASBOTH SCH (08:25)
[2017-05-08] MEDS: [UNRECOGNIZED DRUG - OTHER] TOP SCH (08:26)
[2017-05-08] MEDS: Carboxymethylcellulose Sodium 0.5% Ophth Soln 15 ML Bottle EYEBOTH SCH (08:26)
[2017-05-08 08:29] VITALS: BP 133/59
[2017-05-08] MEDS: Gabapentin 300 MG Cap PO SCH (10:27)
--- NOTE | 2017-05-09 08:26 | DISCH ---
ADMITTING DIAGNOSIS: Episode of shortness of breath. FINAL DIAGNOSIS: Shortness of breath, resolved. BRIEF HISTORY AND ESSENTIAL PHYSICAL FINDINGS: This is an 87-year-old female patient, who is a resident of long-term care facility, they came into the emergency room with concerns about progressive shortness of breath. The patient had just undergone an AVR by Dr. Cobb at [facility] in [place] back on 05/01/2017. She denies any chest pain, but says she has just felt short of breath, could not get any air in, and she denies any cough, chest pain, dizziness, headache, nausea, or sweatiness. The patient was admitted at that time for observation status by recommendations of Dr. Cobb. SIGNIFICANT LABS XRAYS AND CONSULTATION FINDINGS: The patient's chest x-ray that was obtained showed no acute processes. EKG showed normal sinus rhythm. She is paced. She has a history of sick sinus syndrome and had a pacemaker placed in January of this year. She does have a left bundle-branch block, which is not new under EKG. Lab work on admission, CBC was unremarkable. Hemoglobin is slightly low at 11.5. INR was 1.0. Chemistry panel was unremarkable. Troponin was slightly elevated on admission at 0.11. Brain natriuretic peptide was in normal range at 87. Repeat troponin on 05/06/2017 was 0.12; on 05/07/2017, troponin was 0.13. The patient's urinalysis was unremarkable. COURSE IN THE HOSPITAL WITH COMPLICATIONS IF ANY: Throughout the hospital stay, the patient's shortness of breath did improve. She denies any nausea, chest pain, or heart palpitations. The patient was able to the eat and walk around in the halls and felt fine. CONDITION TREATMENT AND FINAL DISPOSITION ON DISCHARGE AND PROGNOSIS: Condition is stable. Final disposition will be back to [facility] here in [place]. IMPRESSION AND PLAN: 1. Episode of shortness of breath, status post AVR back on 05/01/[address] Cobb at [facility] in [place]. Plan: The patient was admitted. She did not have any chest pain during her hospital stay. Telemetry showed paced rhythm, which was sinus rhythm. Her troponins were stable, they are between 0.11 and 0.13 throughout the hospital stay. EKG just showed left bundle-branch block with paced beat, no changes from previous EKG. Chest x-ray showed no acute processes per Radiology. The patient seems to be doing well. We will discharge her back to the [facility]. We will continue with Brilinta 90 mg twice a day. We did increase her metoprolol. We will send her back to care home on metoprolol succinate 25 mg daily along with aspirin 81 mg daily. The patient does have a followup next week with Cardiology in [place]. The patient's brain natriuretic peptide that we obtained on admission was within normal range at 87. The patient's weight has been stable. 2. History of coronary artery disease with PCI. Plan: We will continue with Imdur 45 mg daily. She does take Lasix 20 mg daily also. She can take Nitrostat sublingually as needed. 3. History of sick sinus syndrome. Plan: The patient has had a 100% paced beats since here. She has been on telemetry. 4. Chronic constipation. The patient will continue with Colace and milk of magnesia as needed. She does have a fentanyl patch and Movantik may be a better option for her on a daily basis for regular bowel movements. This can be discussed on followup appointment. 5. History of depression. Plan: Continue with Lexapro 20 mg daily. 6. Chronic pain. Plan: Continue with fentanyl patch 25 mcg every hour. She does also take gabapentin 300 mg three times a day. 7. History of hypothyroidism. Plan: Continue with levothyroxine 150 mcg daily. 8. Hypomagnesemia. Plan: Continue with magnesium oxide 500 mg daily. 9. History of insomnia. Plan: Continue with Remeron 7.5 mg at bedtime. 10.History of gastroesophageal reflux disease. Plan: Continue with omeprazole 20 mg daily. 11.History of hyperlipidemia. Plan: Continue with Zocor 10 mg daily. OVERALL PLAN: The patient will be discharged today back to [facility] here in [place]. We are going to continue her on Toprol-XL 25 mg daily, it is the only med change. Troponins have been stable. She can follow up with Cardiology next week, and we will also have her follow with her PCP here in [place]. The only questionable med change to me is switch her to Movantik for better control of her chronic constipation. /[id number]/MODL
== END 2017-05-08 11:50 ==
LOC: KA.ED 14:54 → KA.MS 17:50
PROVIDERS: ADMIT Family Medicine; ATTEND Family Medicine
DX: R06.02 Shortness of breath (principal); G89.29 Other chronic pain; E83.42 Hypomagnesemia; I25.10 Atherosclerotic heart disease of native coronary artery without angina pectoris; I10 Essential (primary) hypertension; K21.9 Gastro-esophageal reflux disease without esophagitis; K59.09 Other constipation; F32.9 Major depressive disorder, single episode, unspecified; E03.9 Hypothyroidism, unspecified; Z95.2 Presence of prosthetic heart valve; Z88.8 Allergy status to other drugs, medicaments and biological substances; Z95.0 Presence of cardiac pacemaker; Z79.82 Long term (current) use of aspirin; Z79.899 Other long term (current) drug therapy
CPT/HCPCS: 36415; 71020; 80053; 81001; 83880; 84484; 85025; 85610; 85730; 93005; 96374; 99285; A9270; G0378; J1940; 99283